=== PATIENT | male | born 1975 | race Caucasian/White ===

== ENCOUNTER 2023-11-13 10:38 | Day surgery (SDC) | payer BC ==
[~2023-11-13 10:38] MED LIST: Propofol 200 MG/20 ML SDV ONE; fentaNYL 100 MCG/2 ML SDV ONE
[2023-11-13] MEDS: Lactated Ringers 1,000 ML IV SCH (10:52)
== END 2023-11-13 14:02 | disposition home or self-care (01) ==
LOC: VM.SDS 10:38
PROVIDERS: ATTEND Family Medicine
DX: Z12.11 Encounter for screening for malignant neoplasm of colon (principal); D12.0 Benign neoplasm of cecum; D12.6 Benign neoplasm of colon, unspecified; K63.5 Polyp of colon; K62.1 Rectal polyp; I10 Essential (primary) hypertension; E78.1 Pure hyperglyceridemia; E66.9 Obesity, unspecified; Z87.891 Personal history of nicotine dependence
CPT/HCPCS: 00811; 45380; 45385; J2704; J3010; J7120